=== PATIENT | female | born 1940 | race Caucasian/White ===

== ENCOUNTER 2019-02-09 19:27 | Emergency (ER) | payer OTHER, MEDICAID ==
[~2019-02-09] VITALS: Ht 152.4 cm; Wt 53.5 kg
[2019-02-09 22:47] LABS: PLATELET COUNT 96 x10^3mcL (130-400); RED CELL DISTRIBUTION WIDTH 16.4 % (11.5-14.5)
[2019-02-09 22:57] LABS: CALCIUM 9.7 mg/dL (8.5-10.1); CHLORIDE SERUM 90 mmol/L (98-107); CREATININE SERUM 0.7 mg/dL (0.6-1.0); GLUCOSE SERUM 153 mg/dL (74-106); POTASSIUM SERUM 3.6 mmol/L (3.5-5.1); SODIUM SERUM 129 mmol/L (136-145)
[2019-02-09 23:02] LABS: ALBUMIN 4.3 g/dL (3.4-5.0); ALKALINE PHOSPHATASE 39 U/L (46-116); ALT/SGPT 15 U/L (14-59); AST/SGOT 20 U/L (15-37); BILIRUBIN TOTAL 0.72 mg/dL (0.20-1.00); CHOLESTEROL 154 mg/dL (<200); CHOLESTEROL/HDL RATIO 1.9; HDL CHOLESTEROL 82 mg/dL (40-60); LIPASE 168 IU/L (73-393); TOTAL PROTEIN, SERUM 8.4 g/dL (6.4-8.2); TRIGLYCERIDES 150 mg/dL (<150)
[2019-02-09 23:11] LABS: T3 TOTAL 1.09 ng/mL
[2019-02-09 23:14] LABS: FREE THYROXINE INDEX 3.3 ug/dL (1.4-4.5); T4(THYROXINE) 9.4 ug/dL (4.7-13.3)
[2019-02-10 00:38] VITALS: BP 154/75
== END 2019-02-10 00:38 | disposition home or self-care (01) ==
LOC: ED 19:27
PROVIDERS: Specialist
DX: M50.322 Other cervical disc degeneration at C5-C6 level (principal); M19.90 Unspecified osteoarthritis, unspecified site; I10 Essential (primary) hypertension; E11.9 Type 2 diabetes mellitus without complications; E78.00 Pure hypercholesterolemia, unspecified
CPT/HCPCS: 36415; 82962; 83880; 84439